=== PATIENT | male | born 1985 | race Caucasian/White ===

== ENCOUNTER 2019-09-10 00:55 | Emergency (ER) | payer OTHER ==
[~2019-09-10] VITALS: Ht 177.8 cm; Wt 66.0 kg
[2019-09-10 00:57] VITALS: BP 117/77
== END 2019-09-10 01:54 | disposition left against medical advice (07) ==
LOC: ER 00:55
DX: Z53.21 Procedure and treatment not carried out due to patient leaving prior to being seen by health care provider (principal)

== ENCOUNTER 2019-09-10 02:11 | Emergency (ER) | payer OTHER ==
[~2019-09-10] VITALS: Ht 167.6 cm; Wt 56.0 kg
[2019-09-10 06:00] VITALS: BP 105/44
[2019-09-10] MEDS ORDERED: DIPHENHYDRAMINE 12.5MG/5ML UDC PO ONE (06:30)
== END 2019-09-10 09:34 | disposition home or self-care (01) ==
LOC: ER 02:11
DX: F15.229 Other stimulant dependence with intoxication, unspecified (principal); L29.9 Pruritus, unspecified; F20.9 Schizophrenia, unspecified
CPT/HCPCS: 99282; Q0163; 99281